=== PATIENT | female | born 1945 ===

== ENCOUNTER 2024-02-15 12:42 | Outpatient (CLI) | payer MEDICARE ==
[2024-02-15] MEDS ORDERED: Iopamidol 300 61% 100 ML VIAL FS ONE (15:16)
== END 2024-02-15 12:43 | disposition home or self-care (01) ==
LOC: CSHCT 12:42
PROVIDERS: ATTEND Physician Assistant Medical
DX: K52.9 Noninfective gastroenteritis and colitis, unspecified (principal); E03.9 Hypothyroidism, unspecified; N28.1 Cyst of kidney, acquired; K57.30 Diverticulosis of large intestine without perforation or abscess without bleeding
CPT/HCPCS: 36415; 74177; 82565; Q9967